=== PATIENT | female | born 1970 | race Caucasian/White ===

== ENCOUNTER 2018-11-05 20:36 | Observation (INO) ==
[2018-11-05 21:11] LABS: Basophils # 0.1 K/mm3 (0-0.2); Basophils % 0.5 % (0.1-2.0); Eosinophils # 0.2 K/mm3 (0.0-0.4); Eosinophils % 2.2 % (0.1-12.0); Hematocrit 38.3 % (37.0-47.0); Hemoglobin 13.7 g/dL (12.2-16.2); Lymphocytes % 49.5 % (10-50); Mean Corpuscular HGB Conc 35.8 g/dL (31.8-35.4); Mean Corpuscular Hemoglobin 32.1 pg (27.0-31.2); Mean Corpuscular Volume 89.8 fl (81-99); Mean Platelet Volume 7.5 fl (7.4-10.4); Monocytes # 0.5 K/mm3 (0.1-1.0); Monocytes % 4.9 % (1.7-9.3); Neutrophils # 4.3 K/mm3 (1.8-7.8); Platelet Count 176 K/mm3 (142-424); Red Blood Count 4.26 M/mm3 (4.20-5.40); Red Cell Distribution Width 12.4 % (11.5-17.5)
[2018-11-05 21:31] LABS: Blood Urea Nitrogen 13 mg/dL (7-18); Carbon Dioxide 26 mmol/L (21.0-32.0); Chloride 104 mmol/L (98-107); Glucose 109 mg/dL (74-106); Sodium 142 mmol/L (136-145)
--- NOTE | 2018-11-05 21:53 | Emergency Department Note ---
ED Disposition Clinical Impression: Obesity (BMI 30-39.9), Tobacco use, Hypokalemia, Acquired hypothyroidism Chest pain Qualifiers: Chest pain type: precordial pain Qualified Code(s): R07.2 - Precordial pain Hyperlipidemia Qualifiers: Hyperlipidemia type: unspecified Qualified Code(s): E78.5 - Hyperlipidemia, unspecified HTN (hypertension) Qualifiers: Hypertension type: essential hypertension Qualified Code(s): I10 - Essential (primary) hypertension Disposition: Admitted as Observation Condition on Discharge: Good Referrals: Zahira Chavez APRN [Primary Care Provider] - - Critical Care Critical Care Time: No Attestation: On 11/05/18, the high probability of a clinically significant, sudden or life threatening deterioration of the following system(s) required my full and direct attention, intervention and personal management. The time I documented below is in addition to time spent performing reported procedures but includes the following listed in this critical care notation. Medical Decision Making - Medical Records Medical records reviewed: Yes: I reviewed the patient's medical records. - Festus Inquiry Pt receiving controlled substance: No Vital Signs: 11/05/18 20:37 11/05/18 22:06 Temperature 98.8 F Temperature Source Oral Pulse Rate [Right] 73 65 Respiratory Rate 16 20 Blood Pressure [Right Arm] 144/90 H 141/80 H Blood Pressure Mean [Right Arm] 108 100 Blood Pressure Source [Right Arm] Automatic Cuff Blood Pressure Position [Right Arm] Supine 02 Sat by Pulse Oximetry 97 92 L Oxygen Delivery Method Room Air - Lab Data Lab results reviewed: Yes: I reviewed the patient's lab results. Lab Results 11/05/18 20:40: WBC 10.0, RBC 4.26, Hgb 13.7, Hct 38.3, MCV 89.8, MCH 32.1 H, MCHC 35.8 H, RDW 12.4, Plt Count 176, MPV 7.5, Neut % (Auto) 43.0, Lymph % (Auto) 49.5, [place] % (Auto) 4.9, Eos % (Auto) 2.2, Baso % (Auto) 0.5, Neut # (Auto) 4.3, Lymph # (Auto) 5.0 H, [place] # (Auto) 0.5, Eos # (Auto) 0.2, Baso # (Auto) 0.1 11/05/18 20:40: Sodium 142, Potassium 3.0 L, Chloride 104, Carbon Dioxide 26, Anion Gap 15.0, BUN 13, Creatinine 0.73, Estimated Creat Clear 148, Estimated GFR 85, Est GFR ( Amer) 103, Glucose 109 H, Calcium 9.0, Troponin I < 0.02 Result diagrams: 11/05/18 20:40 11/05/18 20:40 Orders (Tests/Meds): ED MEDICATIONS Generic Name Dose Route Start Last Admin Trade Name Freq PRN Reason Stop Dose Admin Sodium Chloride 1,000 mls @ 999 mls/hr 11/05/18 21:00 11/05/18 21:00 Sod Chlor 0.9% 1000ml Bag IV 11/05/18 22:00 999 mls/hr .Q1H1M TANYA Administration Discontinued Medications Generic Name Dose Route Start Last Admin Trade Name Freq PRN Reason Stop Dose Admin Aspirin 324 mg 11/05/18 20:58 11/05/18 20:59 Aspirin 81mg Chewable Tablet PO 11/05/18 20:59 324 mg ONCE ONE Administration Nitroglycerin 1 gm 11/05/18 20:58 11/05/18 21:00 Nitroglycerin 1 Inch Oint Udp TD 11/05/18 20:59 1 gm ONCE ONE Administration ORDERS Category Date Time Status Chest XR 2 view (NOT portable) [XR chest 2V] Stat Exams 11/05/18 20:57 Taken - Radiology Data #1 Image(s): Chest Image Reviewed: Yes I reviewed the patient's radiology image Preliminary Findings: Normal/NAD - ECG Data Tracing #1 Normal Sinus Rhythm: Yes Ischemic changes: non-specific ST-T wave changes - Physician Consults Physician Consulted: jeremy Reason -: Admission Chest Pain HPI - General Chief Complaint: Chest Pain Stated Complaint: Chest pain Time Seen by Provider: 11/05/18 20:50 Mode of Arrival: EMS Source of Information: Patient, EMS, Medical Record Limitations: No Limitations Description of Symptoms (Recalled from ER Triage Doc. by RN): Pt c/o of chest pain today, nitro given PRIMARY CLINICIAN by EMS without relief - History of Present Illness HPI narrative: this wf with ant chest pain with rad to neck - pain is new and no specific inc or dec factors - no prev card jose elias Otoole MD complaint: chest pain indicative of cardiac Onset (ago): day(s) Duration: intermittent Activity at onset: during rest Pain location: left chest Quality: aching Pain radiation: neck Risk Factors for CAD: Hypertension, Family Hx of CAD, Smoking Treatments prior to or on arrival for Cardiac Chest Pain: none - GAVIN Score for Non-Stemi Age of Patient: 40-49 years old Heart Rate: 70-89 bpm Systolic Blood Pressure: 140-159 mmHg Serum Creatinine: 0.40-0.79 mg/dl CHF [place] Class: I-No CHF Other Risk Factors: None Non-Stemi Risk Score: 62 - Related Data On Oral Contraceptives: No Home Medications Medication Instructions Recorded Confirmed Acyclovir [Acyclovir 800mg tab] 400 mg PO BID 11/05/18 11/05/18 Albuterol Sulfate [Albuterol 2.5 mg IH NEEDED PRN 11/05/18 11/05/18 0.083% 2.5mg/3mL neb] Atorvastatin Calcium [Lipitor 20mg 20 mg PO HS 11/05/18 11/05/18 Tablet] Fluoxetine HCl [Prozac] 20 mg PO DAILY 11/05/18 11/05/18 Gabapentin 600 mg PO QID 11/05/18 11/05/18 Levothyroxine Sodium [Synthroid 75 mcg PO DAILY 11/05/18 11/05/18 75mcg (0.075mg) tablet] Lisinopril [Lisinopril 30mg Tablet] 30 mg PO DAILY 11/05/18 11/05/18 Omeprazole [Omeprazole 20mg Tab] 20 mg PO DAILY 11/05/18 11/05/18 Ondansetron HCl [Ondansetron 4mg 4 mg PO Q6HP PRN 11/05/18 11/05/18 Tablet] clonazePAM [Klonopin 0.5mg tablet] 0.5 mg PO NEEDED PRN 11/05/18 11/05/18 Allergies Allergy/AdvReac Type Severity Reaction Status Date / Time INGREDIENT: NO KNOWN - NO Allergy Unknown Uncoded 06/25/17 14:52 KNOWN DRUG ALLERGY [facility] History - Hepatitis A Screen Drug use history?: No High risk sexual behaviors?: No History of sexually transmitted infection?: No Currently employed?: No Childcare worker?: No Do you have indoor plumbing?: Yes Do you have electricity?: Yes Attestation statement:: This patient has been screened for Hepatitis A risk factors. I have reviewed the patient's past medical history: Yes Medical History: Denies:: Diabetes Mellitus Type 1, Diabetes Mellitus Type 2 - Social History Smoking Status: Current every day smoker Tobacco Type: cigarettes, e-cigarettes # Packs/Day (cigarettes): 1 Alcohol Intake: never Occupational Status: disabled - Psychiatric History Expresses thoughts of harming self/others: None Suicide Plan Description: No Plan ROS Obtained: Yes All systems reviewed & no additional complaints - Constitutional Constitutional: Denies fever(s) - Eyes Eyes: Denies change in vision - ENT Ears, Nose, Mouth, and Throat: Denies sore throat - Cardiovascular Cardiovascular: Reports chest pain at rest, Reports dyspnea, Reports radiating jaw, neck or arm pain - Respiratory Respiratory: No cough - Gastrointestinal Gastrointestingal: Denies: abdominal pain, vomiting - Genitourinary Female Genitourinary: Denies hematuria - Musculoskeletal Musculoskeletal: Denies joint pain, Denies joint swelling - Integumentary/Breasts Skin/Breast: Denies rash - Neurologic Neurologic: Denies seizure-like activity Physical Exam - General General appearance: alert, obese - Head Head exam: normocephalic - Eye Eye exam: Present: PERRL, EOMI. Absent: scleral icterus - ENT ENT exam: Present: mucous membranes dry - Neck Neck exam: Present: trachea midline - Respiratory Respiratory exam: Present: normal lung sounds bilaterally. Absent: respiratory distress - Cardiovascular Cardiovascular exam: Present: regular rate, systolic murmur - Abdominal Exam Abdominal exam: Present: soft - Extremities Exam Extremities exam: Absent: calf tenderness - Neurological Exam Neurological exam: Present: alert, oriented X3, CN II-XII intact - Psychiatric Psychiatric exam: Present: normal affect - Skin Skin exam: Absent: rash
[2018-11-05 23:52] LABS: Thyroid Stimulating Hormone 2.19 uIU/ml (0.358-3.740)
[2018-11-06 06:43] LABS: Basophils # 0.1 K/mm3 (0-0.2); Basophils % 0.6 % (0.1-2.0); Eosinophils # 0.2 K/mm3 (0.0-0.4); Eosinophils % 2.4 % (0.1-12.0); Hematocrit 34.8 % (37.0-47.0); Lymphocytes # 5.1 K/mm3 (0.7-4.5); Lymphocytes % 54.5 % (10-50); Mean Corpuscular HGB Conc 35.1 g/dL (31.8-35.4); Mean Corpuscular Hemoglobin 31.9 pg (27.0-31.2); Mean Corpuscular Volume 90.8 fl (81-99); Mean Platelet Volume 7.7 fl (7.4-10.4); Monocytes # 0.5 K/mm3 (0.1-1.0); Monocytes % 5.6 % (1.7-9.3); Neutrophils # 3.4 K/mm3 (1.8-7.8); Neutrophils % 36.8 % (37.0-80.0); Platelet Count 168 K/mm3 (142-424); Red Blood Count 3.83 M/mm3 (4.20-5.40); Red Cell Distribution Width 12.3 % (11.5-17.5); White Blood Count 9.3 K/mm3 (4.8-10.8)
[2018-11-06 06:56] LABS: Hemoglobin 12.3 g/dL (12.2-16.2)
[2018-11-06 07:09] LABS: Anion Gap 11.4 mEq/L (5-15); Chol/HDL Ratio 5.5 (1-3.5); Potassium 3.4 mmoL/L (3.5-5.1)
--- NOTE | 2018-11-06 07:11 | Pharmacy Consult Notes ---
[facility] Pharmacy VTE Monitoring - Patient Demographics Admission date: 11/05/18 Report Date: 11/06/18 Time: 07:11 Allergies/Adverse Reactions: Patient Allergies INGREDIENT: NO KNOWN - NO KNOWN DRUG ALLERGY Allergy (Unknown, Uncoded 06/25/17 14:52) Height: 1.63 m Weight: 89.471 kg Patient Problems: Current Active Problems (Updated 11/05/18 @ 23:20 by Braydon Mendoza MD) Chest pain (Acute) Obesity (BMI 30-39.9) (Acute) Tobacco use (Acute) Hypokalemia (Acute) Acquired hypothyroidism (Acute) Hyperlipidemia (Acute) HTN (hypertension) (Acute) - VTE Risk Labs: VTE Related Lab Results Hgb 12.3 g/dL (12.2-16.2) D 11/06/18 05:31 Hct 34.8 % (37.0-47.0) L 11/06/18 05:31 Plt Count 168 K/mm3 (142-424) 11/06/18 05:31 BUN 11 mg/dL (7-18) 11/06/18 05:31 Creatinine 0.62 mg/dL (0.55-1.02) 11/06/18 05:31 Estimated Creat Clear 157 mL/min (50-200) 11/06/18 05:31 Was VTE Risk Assessment Performed: Yes VTE Score: 2 VTE Risk Level: Very Low Risk Clinical Trial Participant: No - Prophylaxis Types of VTE Prophylaxis: TEDS Knee High
--- NOTE | 2018-11-06 07:53 | Consult Report ---
History of Present Illness Consult date: 11/06/18 Requesting physician: Naresh Morales Consult reason: chest pain Chief complaint: chest pain Additional Medical History:: 1. Hypertension 2. Hyperlipidemia 3. Tobacco use, started 3 years ago 4. Disability due to arthritis, fibromyalgia 5. Obesity 6. Hypothyroidism 7. GERD History of present illness: 47-year-old white female relates onset of gas type chest sensation starting on 11/01/2018 and intermittently worse since then but not associated with activity. Patient denies any fever, nausea or vomiting. Questionable chills noted. Yesterday about 20 minutes after eating patient developed sudden severe chest tightness with reported pallor and diaphoresis. Patient was transported to the emergency department for further evaluation. She was admitted for observation. Cardiac troponins overnight have been normal. Patient's EKG is sinus and unremarkable. Preliminary echocardiogram this morning shows normal left ventricular size and function with no significant valvular heart disease. Patient does relate some upper abdominal discomfort with palpation and some chest discomfort with palpation. Chest x-ray is unremarkable. Cardiology consulted for evaluation and recommendations. [facility] History Medical History: Reports:: Hyperlipidemia, Hypertension Denies:: Diabetes Mellitus Type 1, Diabetes Mellitus Type 2 *Have you ever received a pneumonia vaccine?: No *Have you received a flu vaccine this season?: No Other Surgeries: Yes: Appendectomy, , Tubal Ligation - *Social History Educational Level: Attended High School Smoking Status: Current every day smoker Tobacco Type: cigarettes # Packs/Day (cigarettes): 1 Alcohol Intake: never *Occupational Status:: disabled Housing: apartment *Travel in the last 8 weeks: None - Psychiatric History Expresses thoughts of harming self/others: None Suicide Plan Description: No Plan Family Hx:: Diabetes, Heart Attack, Hyperlipidemia, Hypertension, Stroke Meds Home Medications Medication Instructions Recorded Confirmed Type Acyclovir [Acyclovir 800mg tab] 400 mg PO BID 11/05/18 11/06/18 History Albuterol Sulfate [Albuterol 2.5 mg IH NEEDED PRN 11/05/18 11/06/18 History 0.083% 2.5mg/3mL neb] Fluoxetine HCl [Prozac] 20 mg PO DAILY 11/05/18 11/06/18 History Gabapentin 600 mg PO QID 11/05/18 11/06/18 History Levothyroxine Sodium [Synthroid 37.5 mcg PO DAILY 11/05/18 11/06/18 History 75mcg (0.075mg) tablet] Omeprazole [Omeprazole 20mg Tab] 20 mg PO DAILY 11/05/18 11/06/18 History Ondansetron HCl [Ondansetron 4mg 4 mg PO Q6HP PRN 11/05/18 11/06/18 History Tablet] clonazePAM [Klonopin 0.5mg tablet] 0.5 mg PO TID PRN 11/05/18 11/06/18 History Albuterol Sulfate [Proair Hfa 1 - 2 puffs INHALATION Q6HP PRN 11/06/18 11/06/18 History 90mcg/puff Inh] Lisinopril [Lisinopril 40mg Tablet] 40 mg PO DAILY 11/06/18 11/06/18 History Metoprolol Succinate [Toprol XL 50 mg PO DAILY 11/06/18 11/06/18 History 50mg Tablet] Naproxen [Naproxen 500mg tab] 500 mg PO BID 11/06/18 11/06/18 History Pravastatin Sodium [Pravachol 40mg 40 mg PO HS 11/06/18 11/06/18 History Tablet] Allergies Allergy/AdvReac Type Severity Reaction Status Date / Time No Known Allergies Allergy Unverified 11/06/18 07:25 Review of Systems - *Cardiovascular Reports chest pain, Reports shortness of breath with activity, Denies lightheadedness - *Respiratory Reports shortness of breath with activity, Denies cough - *Gastrointestinal Reports abdominal pain, Denies nausea, Denies vomiting - *Genitourinary Denies blood in urine - *Musculoskeletal Reports joint pain, Reports back pain, Reports limited joint movement, Reports body aches Comments: Left ankle pain due to sprain - *Neurologic Denies seizure-like activity Exam Vital signs and Labs for Last 24 Hours: Temp Pulse Resp BP Pulse Ox 97.9 F 65 16 113/68 96 11/06/18 04:00 11/06/18 04:00 11/06/18 04:00 11/06/18 04:00 11/06/18 04:00 Laboratory Results - last 24 hr 11/05/18 20:40: WBC 10.0, RBC 4.26, Hgb 13.7, Hct 38.3, MCV 89.8, MCH 32.1 H, MCHC 35.8 H, RDW 12.4, Plt Count 176, MPV 7.5, Neut % (Auto) 43.0, Lymph % (Auto) 49.5, [place] % (Auto) 4.9, Eos % (Auto) 2.2, Baso % (Auto) 0.5, Neut # (Auto) 4.3, Lymph # (Auto) 5.0 H, [place] # (Auto) 0.5, Eos # (Auto) 0.2, Baso # (Auto) 0.1 11/05/18 20:40: Sodium 142, Potassium 3.0 L, Chloride 104, Carbon Dioxide 26, Anion Gap 15.0, BUN 13, Creatinine 0.73, Estimated Creat Clear 148, Estimated GFR 85, Est GFR ( Amer) 103, Glucose 109 H, Calcium 9.0, Troponin I < 0.02 11/05/18 20:40: TSH 2.19, Thyroxine (T4) 6.9 11/06/18 02:05: Troponin I < 0.02 11/06/18 05:31: Troponin I < 0.02 11/06/18 05:31: WBC 9.3, RBC 3.83 L, Hgb 12.3 D, Hct 34.8 L, MCV 90.8, MCH 31.9 H, MCHC 35.1, RDW 12.3, Plt Count 168, MPV 7.7, Neut % (Auto) 36.8 L, Lymph % (Auto) 54.5 H, [place] % (Auto) 5.6, Eos % (Auto) 2.4, Baso % (Auto) 0.6, Neut # (Auto) 3.4, Lymph # (Auto) 5.1 H, [place] # (Auto) 0.5, Eos # (Auto) 0.2, Baso # (Auto) 0.1 11/06/18 05:31: Sodium 143, Potassium 3.4 L, Chloride 107, Carbon Dioxide 28, Anion Gap 11.4, BUN 11, Creatinine 0.62, Estimated Creat Clear 157, Estimated GFR 103, Est GFR ( Amer) 124 D, Glucose 103, Calcium 9.0, Magnesium 1.9, Triglycerides 175, Cholesterol 144, LDL Cholesterol 83, VLDL Cholesterol 35, HDL Cholesterol 26 L, Cholesterol/HDL Ratio 5.5 H I & O for Last 24 hours: Intake & Output 11/03/18 11/04/18 11/05/18 11/06/18 11:59 11:59 11:59 11:59 Intake Total 467 / 467 Output Total 500 / 500 Balance -33 / -33 Weight 197 lb 4 oz - *Routine HEENT Exam Head: Present: normocephalic Eye: Present: EOMI, PERRL ENT: Present: mucous membranes moist Comments: Poor dentition - *Routine Respiratory Exam Present: CTA bilaterally. Absent: accessory muscle use, rales, rhonchi, wheezes - *Routine Cardiovascular Exam Present: RRR. Absent: murmur, gallop, rubs - *Routine Abdominal Exam Present: soft. Absent: tenderness, distended, guarding - *Routine Extremities Exam Absent: edema, calf tenderness - *Routine Neurological Exam Present: alert, oriented X3, moving all extremities Assessment and Plan (1) Chest pain Current visit: Yes Status: Acute Qualifiers: Chest pain type: precordial pain Qualified Code(s): R07.2 - Precordial pain Category: Medical Code(s): R07.9 - Chest pain, unspecified (2) Abdominal pain Current visit: Yes Status: Acute Category: Medical Code(s): R10.9 - Unspecified abdominal pain (3) HTN (hypertension) Current visit: Yes Status: Acute Qualifiers: Hypertension type: essential hypertension Qualified Code(s): I10 - Essential (primary) hypertension Category: Medical Code(s): I10 - Essential (primary) hypertension (4) Hyperlipidemia Current visit: Yes Status: Acute Qualifiers: Hyperlipidemia type: unspecified Qualified Code(s): E78.5 - Hyperlipidemia, unspecified Category: Medical Code(s): E78.5 - Hyperlipidemia, unspecified (5) Obesity (BMI 30-39.9) Current visit: Yes Status: Acute Category: Medical Code(s): E66.9 - Obesity, unspecified (6) Tobacco use Current visit: Yes Status: Acute Category: Medical Code(s): Z72.0 - Tobacco use - Assessment and plan all Dx Assessment and Plan for all problems:: 1. Preliminary echo shows normal LVEF. 2. Troponins normal overnight. 3. With recurrent chest pain, cardiac risk factors and normal LVEF, will recommend lexiscan myoview today. Further recommendations to follow.
[2018-11-06 09:35] LABS: Eosinophils % 2 % (0-3); Lymphocytes % 64 % (10-50); Monocytes % 3 % (2-9); Neutrophils % 30 % (42-76); Total Cells Counted 100
[2018-11-06 09:36] LABS: RBC Morphology Normal
--- NOTE | 2018-11-06 10:54 | Progress Note ---
Internal Medicine - PN: Subj *Date: 11/06/18 *Time: 10:51 Interval history: Ms. Eli was admitted through the emergency room last night with chest pain. She has had chest pain off and on for the past several days. It was nonexertional when it started last night. She has a family history of heart disease. She has hypertension and hyperlipidemia. She is a smoker. She has been seen by cardiology already. She completed a Cardiolite stress test this morning. The results are pending area she is in no acute distress right now but does admit to some substernal chest pain. Exam Vital signs and Labs for Last 24 Hours: Temp Pulse Resp BP Pulse Ox 98.0 F 65 19 156/93 H 97 11/06/18 08:00 11/06/18 08:00 11/06/18 08:00 11/06/18 08:00 11/06/18 08:00 Laboratory Results - last 24 hr 11/05/18 20:40: WBC 10.0, RBC 4.26, Hgb 13.7, Hct 38.3, MCV 89.8, MCH 32.1 H, MCHC 35.8 H, RDW 12.4, Plt Count 176, MPV 7.5, Neut % (Auto) 43.0, Lymph % (Auto) 49.5, [place] % (Auto) 4.9, Eos % (Auto) 2.2, Baso % (Auto) 0.5, Neut # (Auto) 4.3, Lymph # (Auto) 5.0 H, [place] # (Auto) 0.5, Eos # (Auto) 0.2, Baso # (Auto) 0.1 11/05/18 20:40: Sodium 142, Potassium 3.0 L, Chloride 104, Carbon Dioxide 26, Anion Gap 15.0, BUN 13, Creatinine 0.73, Estimated Creat Clear 148, Estimated GFR 85, Est GFR ( Amer) 103, Glucose 109 H, Calcium 9.0, Troponin I < 0.02 11/05/18 20:40: TSH 2.19, Thyroxine (T4) 6.9 11/06/18 02:05: Troponin I < 0.02 11/06/18 05:31: Troponin I < 0.02 11/06/18 05:31: WBC 9.3, RBC 3.83 L, Hgb 12.3 D, Hct 34.8 L, MCV 90.8, MCH 31.9 H, MCHC 35.1, RDW 12.3, Plt Count 168, MPV 7.7, Neut % (Auto) 36.8 L, Lymph % (Auto) 54.5 H, [place] % (Auto) 5.6, Eos % (Auto) 2.4, Baso % (Auto) 0.6, Neut # (Auto) 3.4, Lymph # (Auto) 5.1 H, [place] # (Auto) 0.5, Eos # (Auto) 0.2, Baso # (Auto) 0.1, Total Counted 100, Neutrophils % (Manual) 30 L, Band Neutrophils % 1.0, Lymphocytes % (Manual) 64 H, Monocytes % (Manual) 3, Eosinophils % (Manual) 2, Platelet Estimate Normal, RBC Morphology Normal 11/06/18 05:31: Sodium 143, Potassium 3.4 L, Chloride 107, Carbon Dioxide 28, Anion Gap 11.4, BUN 11, Creatinine 0.62, Estimated Creat Clear 157, Estimated GFR 103, Est GFR ( Amer) 124 D, Glucose 103, Calcium 9.0, Magnesium 1.9, Triglycerides 175, Cholesterol 144, LDL Cholesterol 83, VLDL Cholesterol 35, HDL Cholesterol 26 L, Cholesterol/HDL Ratio 5.5 H I & O for Last 24 hours: Intake & Output 11/03/18 11/04/18 11/05/18 11/06/18 11:59 11:59 11:59 11:59 Intake Total 467 / 467 Output Total 500 / 500 Balance -33 / -33 Weight 197 lb 4 oz - Constitutional no acute distress - *Routine HEENT Exam Head: Present: normocephalic Eye: Present: PERRL ENT: Present: mucous membranes moist - *Routine Respiratory Exam Present: CTA bilaterally - *Routine Cardiovascular Exam Present: RRR. Absent: murmur - *Routine Abdominal Exam Present: soft (Obese). Absent: tenderness - *Routine Extremities Exam Absent: edema - *Routine Neurological Exam Present: alert, oriented X3 Assessment and Plan (1) Chest pain Current visit: Yes Status: Acute Qualifiers: Chest pain type: precordial pain Qualified Code(s): R07.2 - Precordial pain Category: Medical Code(s): R07.9 - Chest pain, unspecified (2) Abdominal pain Current visit: Yes Status: Acute Category: Medical Code(s): R10.9 - Unspecified abdominal pain (3) HTN (hypertension) Current visit: Yes Status: Acute Qualifiers: Hypertension type: essential hypertension Qualified Code(s): I10 - Essenti al (primary) hypertension Category: Medical Code(s): I10 - Essential (primary) hypertension (4) Hyperlipidemia Current visit: Yes Status: Acute Qualifiers: Hyperlipidemia type: unspecified Qualified Code(s): E78.5 - Hyperlipidemia, unspecified Category: Medical Code(s): E78.5 - Hyperlipidemia, unspecified (5) Obesity (BMI 30-39.9) Current visit: Yes Status: Acute Category: Medical Code(s): E66.9 - Obesity, unspecified (6) Tobacco use Current visit: Yes Status: Acute Category: Medical Code(s): Z72.0 - Tobacco use - Assessment and plan all Dx Assessment and Plan for all problems:: Awaiting Cardiolite results.
--- NOTE | 2018-11-06 12:25 | History & Physical Report ---
*Admission Date: 11/05/18 *Chief complaint: chest pain *History of present illness: Ms. Eli is a 47yo female patient of Zahira Chavez who was admitted through the emergency room last night with chest pain. She has had chest pain off and on for the past several days. It was nonexertional when it started last night. She thought it was just reflux as she had some pain in the epigastric area as well, but when it did not resolve, she came to the ER. She has a family history of heart disease. She has hypertension and hyperlipidemia. She is a smoker. She has been seen by cardiology already. She completed a Cardiolite stress test this morning. The results are pending and she is in no acute distress right now but does admit to some substernal chest pain and epigastric pain. [facility] History I have reviewed the patient's past medical history: Yes Medical History: Reports:: Chronic Obstructive Pulmonary Disease (COPD), Hyperlipidemia, Hypertension Denies:: Diabetes Mellitus Type 1, Diabetes Mellitus Type 2 *Have you ever received a pneumonia vaccine?: No *Have you received a flu vaccine this season?: No Other Medical History: Reports: Arthritis, Hypothyroidism, Other (Fibromyalgia, Genital Warts) Other Surgeries: Yes: Appendectomy, , Tubal Ligation - *Social History Educational Level: Attended High School Smoking Status: Current every day smoker Tobacco Type: cigarettes # Packs/Day (cigarettes): 1 Alcohol Intake: never *Occupational Status:: disabled Housing: apartment *Travel in the last 8 weeks: None - Psychiatric History Expresses thoughts of harming self/others: None Suicide Plan Description: No Plan Family Hx:: Diabetes, Heart Attack, Hyperlipidemia, Hypertension, Stroke Review of Systems - Constitutional Reports weakness, Denies fever(s) - Eyes Denies blurry vision, Denies double vision - ENT Reports sore throat, Denies nasal congestion - *Cardiovascular Reports chest pain, Reports shortness of breath, Reports rapid, pounding, or irregular heartbeat - *Respiratory Reports cough, Reports shortness of breath - *Gastrointestinal Reports abdominal pain (epigastric and RUQ), Reports loose stools, Reports nausea, Denies vomiting - *Genitourinary Denies difficulty urinating, Denies painful urination - *Musculoskeletal Reports joint pain, Reports muscle cramps - *Neurologic Reports headache(s), Denies seizure-like activity, Denies dizziness, Denies weakness Meds Home Medications Medication Instructions Recorded Confirmed Type Acyclovir [Acyclovir 800mg tab] 400 mg PO BID 11/05/18 11/06/18 History Albuterol Sulfate [Albuterol 2.5 mg IH NEEDED PRN 11/05/18 11/06/18 History 0.083% 2.5mg/3mL neb] Fluoxetine HCl [Prozac] 20 mg PO DAILY 11/05/18 11/06/18 History Gabapentin 600 mg PO QID 11/05/18 11/06/18 History Levothyroxine Sodium [Synthroid 37.5 mcg PO DAILY 11/05/18 11/06/18 History 75mcg (0.075mg) tablet] Omeprazole [Omeprazole 20mg Tab] 20 mg PO DAILY 11/05/18 11/06/18 History Ondansetron HCl [Ondansetron 4mg 4 mg PO Q6HP PRN 11/05/18 11/06/18 History Tablet] clonazePAM [Klonopin 0.5mg tablet] 0.5 mg PO TID PRN 11/05/18 11/06/18 History Albuterol Sulfate [Proair Hfa 1 - 2 puffs INHALATION Q6HP PRN 11/06/18 11/06/18 History 90mcg/puff Inh] Lisinopril [Lisinopril 40mg Tablet] 40 mg PO DAILY 11/06/18 11/06/18 History Metoprolol Succinate [Toprol XL 50 mg PO DAILY 11/06/18 11/06/18 History 50mg Tablet] Naproxen [Naproxen 500mg tab] 500 mg PO BID 11/06/18 11/06/18 History Pravastatin Sodium [Pravachol 40mg 40 mg PO HS 11/06/18 11/06/18 History Tablet] Allergies Allergy/AdvReac Type Severity Reaction Status Date / Time No Known Allergies Allergy Unverified 11/06/18 07:25 Exam Vital signs and Labs for Last 24 Hours: Temp Pulse Resp BP Pulse Ox 98.0 F 65 19 156/93 H 97 11/06/18 08:00 11/06/18 08:00 11/06/18 08:00 11/06/18 08:00 11/06/18 08:00 Laboratory Results - last 24 hr 11/05/18 20:40: WBC 10.0, RBC 4.26, Hgb 13.7, Hct 38.3, MCV 89.8, MCH 32.1 H, MCHC 35.8 H, RDW 12.4, Plt Count 176, MPV 7.5, Neut % (Auto) 43.0, Lymph % (Auto) 49.5, [place] % (Auto) 4.9, Eos % (Auto) 2.2, Baso % (Auto) 0.5, Neut # (Auto) 4.3, Lymph # (Auto) 5.0 H, [place] # (Auto) 0.5, Eos # (Auto) 0.2, Baso # (Auto) 0.1 11/05/18 20:40: Sodium 142, Potassium 3.0 L, Chloride 104, Carbon Dioxide 26, Anion Gap 15.0, BUN 13, Creatinine 0.73, Estimated Creat Clear 148, Estimated GFR 85, Est GFR ( Amer) 103, Glucose 109 H, Calcium 9.0, Troponin I < 0.02 11/05/18 20:40: TSH 2.19, Thyroxine (T4) 6.9 11/06/18 02:05: Troponin I < 0.02 11/06/18 05:31: Troponin I < 0.02 11/06/18 05:31: WBC 9.3, RBC 3.83 L, Hgb 12.3 D, Hct 34.8 L, MCV 90.8, MCH 31.9 H, MCHC 35.1, RDW 12.3, Plt Count 168, MPV 7.7, Neut % (Auto) 36.8 L, Lymph % (Auto) 54.5 H, [place] % (Auto) 5.6, Eos % (Auto) 2.4, Baso % (Auto) 0.6, Neut # (Auto) 3.4, Lymph # (Auto) 5.1 H, [place] # (Auto) 0.5, Eos # (Auto) 0.2, Baso # (Auto) 0.1, Total Counted 100, Neutrophils % (Manual) 30 L, Band Neutrophils % 1.0, Lymphocytes % (Manual) 64 H, Monocytes % (Manual) 3, Eosinophils % (Manual) 2, Platelet Estimate Normal, RBC Morphology Normal 11/06/18 05:31: Sodium 143, Potassium 3.4 L, Chloride 107, Carbon Dioxide 28, Anion Gap 11.4, BUN 11, Creatinine 0.62, Estimated Creat Clear 157, Estimated GF R 103, Est GFR ( Amer) 124 D, Glucose 103, Calcium 9.0, Magnesium 1.9, Triglycerides 175, Cholesterol 144, LDL Cholesterol 83, VLDL Cholesterol 35, HDL Cholesterol 26 L, Cholesterol/HDL Ratio 5.5 H 11/06/18 05:31: Amylase 21 L I & O for Last 24 hours: Intake & Output 11/04/18 11/05/18 11/06/18 11/07/18 11:59 11:59 11:59 11:59 Intake Total 467 / 467 Output Total 500 / 500 Balance -33 / -33 Weight 197 lb 4 oz - Constitutional no acute distress - *Routine HEENT Exam Head: Present: normocephalic Eye: Present: EOMI, PERRL ENT: Present: mucous membranes dry - *Routine Neck Exam Present: supple. Absent: lymphadenopathy - *Routine Respiratory Exam Present: CTA bilaterally - *Routine Cardiovascular Exam Present: RRR - *Routine Abdominal Exam Present: soft, normoactive bowel sounds, tenderness (epigastric and RUQ) - *Routine Extremities Exam Absent: cyanosis, clubbing, edema - *Routine Skin Exam Present: warm. Absent: rash - *Routine Neurological Exam Present: alert, oriented X3 H&P: Result - Impressions CXR - Borderline cardiomegaly otherwise Assessment and Plan (1) Chest pain Current visit: Yes Status: Acute Qualifiers: Chest pain type: precordial pain Qualified Code(s): R07.2 - Precordial pain Category: Medical Code(s): R07.9 - Chest pain, unspecified (2) Abdominal pain Current visit: Yes Status: Acute Category: Medical Code(s): R10.9 - Unspecified abdominal pain (3) HTN (hypertension) Current visit: Yes Status: Acute Qualifiers: Hypertension type: essential hypertension Qualified Code(s): I10 - Essential (primary) hypertension Category: Medical Code(s): I10 - Essential (primary) hypertension (4) Hyperlipidemia Current visit: Yes Status: Acute Qualifiers: Hyperlipidemia type: unspecified Qualified Code(s): E78.5 - Hyperlipidemia, unspecified Category: Medical Code(s): E78.5 - Hyperlipidemia, unspecified (5) Obesity (BMI 30-39.9) Current visit: Yes Status: Acute Category: Medical Code(s): E66.9 - Obesity, unspecified (6) Tobacco use Current visit: Yes Status: Acute Category: Medical Code(s): Z72.0 - Tobacco use - Assessment and plan all Dx Assessment and Plan for all problems:: Still awaiting stress test and GB U/S results.
[2018-11-06 15:55] LABS: Albumin Level 3.7 gm/dL (3.4-5.0); Bilirubin,Direct 0.1 mg/dL (0.0-0.2); Bilirubin,Indirect 0.3 mg/dL (0.0-0.9); Bilirubin,Total 0.4 mg/dL (0.2-1.0)
--- NOTE | 2018-11-06 17:52 | Consult Report ---
*Admission Date: 11/05/18 *Chief complaint: chest and abdominal pain *History of present illness: This is a 47yo female seen in consultation from Dr. Morales for evaluation of chest/abdominal pain, nausea, and cholelithiasis. She describes pain in the mid abdomen (worse in the epigastric region). Some nausea over the last "day or so". Symptoms are "maybe worse with eating". She describes "mostly burning and some numbness" that radiates throughout her chest and "up to the neck". No fevers. No jaundice. No hematemesis. She does complain of having "reflux quite a bit". Please see HPI from admission H&P forwarded below: *Admission Date: 11/05/18 *Chief complaint: chest pain *History of present illness: Ms. Eli is a 47yo female patient of Zahira Chavez who was admitted through the emergency room last night with chest pain. She has had chest pain off and on for the past several days. It was nonexertional when it started last night. She thought it was just reflux as she had some pain in the epigastric area as well, but when it did not resolve, she came to the ER. She has a family history of heart disease. She has hypertension and hyperlipidemia. She is a smoker. She has been seen by cardiology already. She completed a Cardiolite stress test this morning. The results are pending and she is in no acute distress right now but does admit to some substernal chest pain and epigastric pain. Review of Systems - Constitutional Denies chills - Eyes Denies change in vision - ENT Denies change in voice - *Cardiovascular Reports chest pain - *Gastrointestinal Reports abdominal pain, Reports nausea - *Neurologic Reports headache(s), Denies seizure-like activity, Denies dizziness, Denies weakness - Hematologic/Lymphatic Denies easy bleeding [facility] History Medical History: Reports:: Chronic Obstructive Pulmonary Disease (COPD), Hyperlipidemia, Hypertension Denies:: Diabetes Mellitus Type 1, Diabetes Mellitus Type 2 *Have you ever received a pneumonia vaccine?: No *Have you received a flu vaccine this season?: No Other Medical History: Reports: Arthritis, Hypothyroidism, Other (Fibromyalgia, Genital Warts) Other Surgeries: Yes: Appendectomy, , Tubal Ligation - *Social History Educational Level: Attended High School Smoking Status: Current every day smoker Tobacco Type: cigarettes # Packs/Day (cigarettes): 1 Alcohol Intake: never *Occupational Status:: disabled Housing: apartment *Travel in the last 8 weeks: None - Psychiatric History Expresses thoughts of harming self/others: None Suicide Plan Description: No Plan Family Hx:: Diabetes, Heart Attack, Hyperlipidemia, Hypertension, Stroke Meds Home Medications Medication Instructions Recorded Confirmed Type Acyclovir [Acyclovir 800mg tab] 400 mg PO BID 11/05/18 11/06/18 History Albuterol Sulfate [Albuterol 2.5 mg IH NEEDED PRN 11/05/18 11/06/18 History 0.083% 2.5mg/3mL neb] Fluoxetine HCl [Prozac] 20 mg PO DAILY 11/05/18 11/06/18 History Gabapentin 600 mg PO QID 11/05/18 11/06/18 History Levothyroxine Sodium [Synthroid 37.5 mcg PO DAILY 11/05/18 11/06/18 History 75mcg (0.075mg) tablet] Omeprazole [Omeprazole 20mg Tab] 20 mg PO DAILY 11/05/18 11/06/18 History Ondansetron HCl [Ondansetron 4mg 4 mg PO Q6HP PRN 11/05/18 11/06/18 History Tablet] clonazePAM [Klonopin 0.5mg tablet] 0.5 mg PO TID PRN 11/05/18 11/06/18 History Albuterol Sulfate [Proair Hfa 1 - 2 puffs INHALATION Q6HP PRN 11/06/18 11/06/18 History 90mcg/puff Inh] Lisinopril [Lisinopril 40mg Tablet] 40 mg PO DAILY 11/06/18 11/06/18 History Metoprolol Succinate [Toprol XL 50 mg PO DAILY 11/06/18 11/06/18 History 50mg Tablet] Naproxen [Naproxen 500mg tab] 500 mg PO BID 11/06/18 11/06/18 History Pravastatin Sodium [Pravachol 40mg 40 mg PO HS 11/06/18 11/06/18 History Tablet] Allergies Allergy/AdvReac Type Severity Reaction Status Date / Time No Known Allergies Allergy Unverified 11/06/18 07:25 Exam Vital signs and Labs for Last 24 Hours: Temp Pulse Resp BP Pulse Ox 98.0 F 62 19 156/93 H 97 11/06/18 08:00 11/06/18 16:00 11/06/18 08:00 11/06/18 08:00 11/06/18 08:00 Laboratory Results - last 24 hr 11/05/18 20:40: WBC 10.0, RBC 4.26, Hgb 13.7, Hct 38.3, MCV 89.8, MCH 32.1 H, MCHC 35.8 H, RDW 12.4, Plt Count 176, MPV 7.5, Neut % (Auto) 43.0, Lymph % (Auto) 49.5, [place] % (Auto) 4.9, Eos % (Auto) 2.2, Baso % (Auto) 0.5, Neut # (Auto) 4.3, Lymph # (Auto) 5.0 H, [place] # (Auto) 0.5, Eos # (Auto) 0.2, Baso # (Auto) 0.1 11/05/18 20:40: Sodium 142, Potassium 3.0 L, Chloride 104, Carbon Dioxide 26, Anion Gap 15.0, BUN 13, Creatinine 0.73, Estimated Creat Clear 148, Estimated GFR 85, Est GFR ( Amer) 103, Glucose 109 H, Calcium 9.0, Troponin I < 0.02 11/05/18 20:40: TSH 2.19, Thyroxine (T4) 6.9 11/06/18 02:05: Troponin I < 0.02 11/06/18 05:31: Troponin I < 0.02 11/06/18 05:31: WBC 9.3, RBC 3.83 L, Hgb 12.3 D, Hct 34.8 L, MCV 90.8, MCH 31.9 H, MCHC 35.1, RDW 12.3, Plt Count 168, MPV 7.7, Neut % (Auto) 36.8 L, Lymph % (Auto) 54.5 H, [place] % (Auto) 5.6, Eos % (Auto) 2.4, Baso % (Auto) 0.6, Neut # (Auto) 3.4, Lymph # (Auto) 5.1 H, [place] # (Auto) 0.5, Eos # (Auto) 0.2, Baso # (Auto) 0.1, Total Counted 100, Neutrophils % (Manual) 30 L, Band Neutrophils % 1.0, Lymphocytes % (Manual) 64 H, Monocytes % (Manual) 3, Eosinophils % (Manual) 2, Platelet Estimate Normal, RBC Morphology Normal 11/06/18 05:31: Sodium 143, Potassium 3.4 L, Chloride 107, Carbon Dioxide 28, Anion Gap 11.4, BUN 11, Creatinine 0.62, Estimated Creat Clear 157, Estimated GFR 103, Est GFR ( Amer) 124 D, Glucose 103, Calcium 9.0, Magnesium 1.9, Triglycerides 175, Cholesterol 144, LDL Cholesterol 83, VLDL Cholesterol 35, HDL Cholesterol 26 L, Cholesterol/HDL Ratio 5.5 H 11/06/18 05:31: Amylase 21 L 11/06/18 05:31: Lipase 67 L 11/06/18 05:31: Total Bilirubin 0.4, Direct Bilirubin 0.1, Indirect Bilirubin 0.3, AST 16, ALT 40, Alkaline Phosphatase 73, Total Protein 7.0, Albumin 3.7 I & O for Last 24 hours: Intake & Output 11/04/18 11/05/18 11/06/18 11/07/18 11:59 11:59 11:59 11:59 Intake Total 467 / 467 Output Total 500 / 500 Balance -33 / -33 Weight 197 lb 4 oz Radiology Reports for the Last 24 Hours: Date of Service: 11/06/18 Procedure(s): US gallbladder PANCREAS: Unremarkable. No obvious mass or abnormal fluid collection. No ductal dilatation LIVER: No focal liver lesions demonstrated. Homogeneous echogenicity. No intrahepatic biliary ductal dilatation evident RIGHT KIDNEY: Unremarkable. Normal size and echogenicity. No hydronephrosis GALLBLADDER: Multiple gallstones are present. No gallbladder wall thickening, pericholecystic fluid, or biliary dilatation is evident IMPRESSION: Cholelithiasis Date of Service: 11/06/18 Procedure(s): NM zen perf SPECT rest & str CARDIOLITE SPECT MYOCARDIAL PERFUSION [place], REST AND STRESS: Cardiac stress and resting SPECT images: Cardiac stress and resting SPECT images were obtained using technetium 99 Myoview 29.5 mCi stress and 8.5 mCi at rest. Gated SPECT further analysis of segmental wall motion and calculation of the ejection fraction also done. Cardiac stress and resting SPECT images show mild defect in the anterior wall with normal contractility in the gated SPECT is likely secondary to soft tissue attenuation, no reversible ischemia seen. Computer Derived ejection fraction is 64% with no regional wall motion abnormality, right ventricle is normal size and contractility. Conclusion: 1. The EKG portion of the exercise Myoview is nondiagnostic. Patient has adequate exercise capacity achieved 7mets of workload on treadmill, the blood pressure response to exercise was adequate, there was no exercise-induced chest discomfort. 2. No scintigraphic evidence of reversible ischemia seen at this level of exercise, computer derived ejection fraction is 44% with no regional wall motion abnormality, right ventricle is normal size and contractility. - Constitutional no acute distress - *Routine Respiratory Exam Absent: respiratory distress - *Routine Cardiovascular Exam Present: RRR - *Routine Abdominal Exam Present: soft, tenderness. Absent: distended Comments: mild to moderate global TTP (worse in epigatric region) Results - Labs 11/06/18 05:31 11/06/18 05:31 Laboratory Results - last 24 hr 11/05/18 20:40: WBC 10.0, RBC 4.26, Hgb 13.7, Hct 38.3, MCV 89.8, MCH 32.1 H, MCHC 35.8 H, RDW 12.4, Plt Count 176, MPV 7.5, Neut % (Auto) 43.0, Lymph % (Auto) 49.5, [place] % (Auto) 4.9, Eos % (Auto) 2.2, Baso % (Auto) 0.5, Neut # (Auto) 4.3, Lymph # (Auto) 5.0 H, [place] # (Auto) 0.5, Eos # (Auto) 0.2, Baso # (Auto) 0.1 11/05/18 20:40: Sodium 142, Potassium 3.0 L, Chloride 104, Carbon Dioxide 26, Anion Gap 15.0, BUN 13, Creatinine 0.73, Estimated Creat Clear 148, Estimated GFR 85, Est GFR ( Amer) 103, Glucose 109 H, Calcium 9.0, Troponin I < 0.02 11/05/18 20:40: TSH 2.19, Thyroxine (T4) 6.9 11/06/18 02:05: Troponin I < 0.02 11/06/18 05:31: Troponin I < 0.02 11/06/18 05:31: WBC 9.3, RBC 3.83 L, Hgb 12.3 D, Hct 34.8 L, MCV 90.8, MCH 31.9 H, MCHC 35.1, RDW 12.3, Plt Count 168, MPV 7.7, Neut % (Auto) 36.8 L, Lymph % (Auto) 54.5 H, [place] % (Auto) 5.6, Eos % (Auto) 2.4, Baso % (Auto) 0.6, Neut # (Auto) 3.4, Lymph # (Auto) 5.1 H, [place] # (Auto) 0.5, Eos # (Auto) 0.2, Baso # (Auto) 0.1, Total Counted 100, Neutrophils % (Manual) 30 L, Band Neutrophils % 1.0, Lymphocytes % (Manual) 64 H, Monocytes % (Manual) 3, Eosinophils % (Manual) 2, Platelet Estimate Normal, RBC Morphology Normal 11/06/18 05:31: Sodium 143, Potassium 3.4 L, Chloride 107, Carbon Dioxide 28, Anion Gap 11.4, BUN 11, Creatinine 0.62, Estimated Creat Clear 157, Estimated GFR 103, Est GFR ( Amer) 124 D, Glucose 103, Calcium 9.0, Magnesium 1.9, Triglycerides 175, Cholesterol 144, LDL Cholesterol 83, VLDL Cholesterol 35, HDL Cholesterol 26 L, Cholesterol/HDL Ratio 5.5 H 11/06/18 05:31: Amylase 21 L 11/06/18 05:31: Lipase 67 L 11/06/18 05:31: Total Bilirubin 0.4, Direct Bilirubin 0.1, Indirect Bilirubin 0.3, AST 16, ALT 40, Alkaline Phosphatase 73, Total Protein 7.0, Albumin 3.7 - Imaging US - abdomen: report reviewed, image reviewed Assessment and Plan (1) Chest pain Current visit: Yes Status: Acute Qualifiers: Chest pain type: precordial pain Qualified Code(s): R07.2 - Precordial pain Category: Medical Code(s): R07.9 - Chest pain, unspecified (2) Abdominal pain Current visit: Yes Status: Acute Category: Medical Code(s): R10.9 - Uns pecified abdominal pain (3) Cholelithiasis Current visit: Yes Status: Acute Category: Medical Code(s): K80.20 - Calculus of gallbladder without cholecystitis without obstruction Her gallstones may be asymptomatic. Her symptoms are somewhat complex and are not c/w "classic" biliary disease. Burning pain that projects to the neck is more c/w reflux; however, some of her symptoms may be secondary to her gallstones or she may be experiencing an atypical presentation. Ongoing discussion concerning possible cholecystectomy (will evaluate response to GI cocktail and will complete EGD first) (4) GERD (gastroesophageal reflux disease) Current visit: Yes Status: Acute Category: Medical Code(s): K21.9 - Gastro-esophageal reflux disease without esophagitis GI cocktail EGD in AM
--- NOTE | 2018-11-06 18:05 | Cardiology Report ---
PROCEDURE: 2-D M-mode and color Doppler study INDICATIONS FOR THE TEST: Chest pain+ COPD Heart Murmur Tobacco Smoking+ Palpitations Fatigue Syncope Edema Hypertension+Diabetes Mellitus Rheumatic Fever SOB BARNARD Obesity+Hyperlipidemia+ Family History HD Additional History PATIENT INFORMATION HEIGHT: 62 WEIGHT:220 GENDER: Female B/P:144/90 2-D/M-MODE INTERPRETATION: 2-D MEASUREMENTS OBSERVED VALUES IN CMS Right Ventricular Dimension (RVDd) 2.8 Interventricular Septum (Thickness)(IVsd) 0.9 Left Ventricular Internal Dimensions(LVIDd) 4.9 Left Ventricular Posterior Wall (Thickness)(LVPWd) 1.1 Aortic Root 2.6 Aortic Cusp Separation 1.9 Left Atrial Dimensions (LAD) 3.6 2D 1. Left atrium is normal size, left ventricle is normal size, there is no concentric left ventricular hypertrophy, visually estimated ejection fraction of 55% with no regional wall motion abnormality. 2. The right atrium is normal size, right ventricle is mildly enlarged with normal contractility. 3. The aortic, mitral and tricuspid valve are grossly normal. 4. The pulmonic valve is poorly visualized. 5. No significant pericardial effusion noted. DOPPLER INTERROGATION: Doppler interrogation of the aortic, mitral and tricuspid valvular presence of mild mitral and tricuspid regurgitation, tricuspid regurgitation jet velocity is inadequate for calculation of the right ventricular systolic pressure, grade 1 diastolic dysfunction seen with tissue Doppler evidence of raised left atrial pressure. Inferior vena cava is normal size with normal inspiratory collapse. CONCLUSION: 1. Normal left ventricular size, preserved left ventricular systolic function, visually estimated ejection fraction 55% with no regional wall motion abnormality, grade 1 diastolic dysfunction seen with tissue Doppler evidence of raised left atrial pressure. 2. Mild mitral and tricuspid regurgitation, tricuspid regurgitation jet velocity is inadequate for calculation of the right ventricular systolic pressure, inferior vena cava is normal size with normal inspiratory collapse. 3. No significant pericardial effusion noted.
--- NOTE | 2018-11-07 06:34 | Progress Note ---
Subjective Narrative: Feels "a little bit better this morning". She did have some relief with GI cocktail last night. She did not have "complete resolution". Exam Vital signs and Labs for Last 24 Hours: Temp Pulse Resp BP Pulse Ox 98.1 F 67 18 127/71 95 11/07/18 04:51 11/07/18 04:51 11/07/18 04:51 11/07/18 04:51 11/07/18 04:51 Laboratory Results - last 24 hr 11/06/18 05:31: Troponin I < 0.02 11/06/18 05:31: WBC 9.3, RBC 3.83 L, Hgb 12.3 D, Hct 34.8 L, MCV 90.8, MCH 31.9 H, MCHC 35.1, RDW 12.3, Plt Count 168, MPV 7.7, Neut % (Auto) 36.8 L, Lymph % (Auto) 54.5 H, [place] % (Auto) 5.6, Eos % (Auto) 2.4, Baso % (Auto) 0.6, Neut # (Auto) 3.4, Lymph # (Auto) 5.1 H, [place] # (Auto) 0.5, Eos # (Auto) 0.2, Baso # (Auto) 0.1, Total Counted 100, Neutrophils % (Manual) 30 L, Band Neutrophils % 1.0, Lymphocytes % (Manual) 64 H, Monocytes % (Manual) 3, Eosinophils % (Manual) 2, Platelet Estimate Normal, RBC Morphology Normal 11/06/18 05:31: Sodium 143, Potassium 3.4 L, Chloride 107, Carbon Dioxide 28, Anion Gap 11.4, BUN 11, Creatinine 0.62, Estimated Creat Clear 157, Estimated GFR 103, Est GFR ( Amer) 124 D, Glucose 103, Calcium 9.0, Magnesium 1.9, Triglycerides 175, Cholesterol 144, LDL Cholesterol 83, VLDL Cholesterol 35, HDL Cholesterol 26 L, Cholesterol/HDL Ratio 5.5 H 11/06/18 05:31: Amylase 21 L 11/06/18 05:31: Lipase 67 L 11/06/18 05:31: Total Bilirubin 0.4, Direct Bilirubin 0.1, Indirect Bilirubin 0.3, AST 16, ALT 40, Alkaline Phosphatase 73, Total Protein 7.0, Albumin 3.7 I & O for Last 24 hours: Intake & Output 11/04/18 11/05/18 11/06/18 11/07/18 11:59 11:59 11:59 11:59 Intake Total 467 / 467 1503 / 1503 Output Total 500 / 500 Balance -33 / -33 1503 / 1503 Weight 197 lb 4 oz 199 lb 9 oz - Constitutional no acute distress - *Routine Respiratory Exam Absent: respiratory distress - *Routine Abdominal Exam Present: soft Progress Note: A&P (1) Chest pain Status: Acute Current Visit: Yes (2) Abdominal pain Status: Acute Current Visit: Yes (3) Cholelithiasis Status: Acute Current Visit: Yes (4) GERD (gastroesophageal reflux disease) Status: Acute Current Visit: Yes Assessment and Plan for All Diagnoses:: The patient is scheduled to undergo esophagogastroduodenoscopy this morning. If the patient's esophagogastroduodenoscopy is normal ongoing consideration of cholecystectomy during this hospitalization will be discussed. If the patient's esophagogastroduodenoscopy reveals any abnormalities laparoscopic cholecystectomy will be postponed for ongoing evaluation of treatment of any said abnormality.
[2018-11-07 06:40] LABS: Basophils % 0.5 % (0.1-2.0); Eosinophils # 0.3 K/mm3 (0.0-0.4); Eosinophils % 2.9 % (0.1-12.0); Hematocrit 34.5 % (37.0-47.0); Hemoglobin 12.2 g/dL (12.2-16.2); Lymphocytes # 4.1 K/mm3 (0.7-4.5); Lymphocytes % 48.2 % (10-50); Mean Corpuscular HGB Conc 35.5 g/dL (31.8-35.4); Mean Corpuscular Hemoglobin 32.3 pg (27.0-31.2); Mean Corpuscular Volume 90.8 fl (81-99); Mean Platelet Volume 7.6 fl (7.4-10.4); Monocytes # 0.4 K/mm3 (0.1-1.0); Monocytes % 4.9 % (1.7-9.3); Neutrophils # 3.7 K/mm3 (1.8-7.8); Neutrophils % 43.5 % (37.0-80.0); Platelet Count 152 K/mm3 (142-424); Red Cell Distribution Width 12.3 % (11.5-17.5); White Blood Count 8.6 K/mm3 (4.8-10.8)
[2018-11-07 07:01] LABS: Anion Gap 10.1 mEq/L (5-15); Potassium 3.1 mmoL/L (3.5-5.1)
--- NOTE | 2018-11-07 07:25 | Progress Note ---
[facility] Anesthesia Checklist - Patient Identification Patient Identification: Arm Band, Verbal (Name & ) - Structural Data Admitted From: Home Planned Operative Procedure/s: egd Consent for Planned Operative Procedure(s) Verified: Yes Verified Documents: History and Physical - NPO Status Verified Time NPO: 00:00 - Additional verifications Patient : No Anesthesia Reactions: No Hx Blood Transfusions: No Blood Transfusion Reaction: No Cephalosporin Allergy: No Previous Colonoscopy: No - Cardiovascular Assessment Heart Sounds: S1 & S2 Pulse Strength: Baseline Pulse Rhythm: Regular Peripheral Edema: No - Airway Assessment C-Spine Mobility Assessed: Yes TMJ Mobility Assessed: Yes Dentition: Good Dentition - Neurological Assessment Level of Consciousness: Awake, Alert, Appropriate Hx Seizures: No Numbness or tingling in extremities: No - Anesthesia Plan Anesthesia Risk discussed: Yes Anesthesia Plan: Verified ASA Class: III Anesthesia Type: MAC [facility] History I have reviewed the patient's past medical history: Yes Medical History: Reports:: Chronic Obstructive Pulmonary Disease (COPD), Hyperlipidemia, Hypertension Denies:: Diabetes Mellitus Type 1, Diabetes Mellitus Type 2 *Have you ever received a pneumonia vaccine?: No *Have you received a flu vaccine this season?: No Other Medical History: Reports: Arthritis, Hypothyroidism, Other (Fibromyalgia, Genital Warts) Other Surgeries: Yes: Appendectomy, , Tubal Ligation - *Social History Educational Level: Attended High School Smoking Status: Current every day smoker Tobacco Type: cigarettes # Packs/Day (cigarettes): 1 Alcohol Intake: never *Occupational Status:: disabled Housing: apartment *Travel in the last 8 weeks: None - Psychiatric History Expresses thoughts of harming self/others: None Suicide Plan Description: No Plan Family Hx:: Diabetes, Heart Attack, Hyperlipidemia, Hypertension, Stroke
--- NOTE | 2018-11-07 07:29 | Procedure Note ---
- Procedure: Date: 11/07/18 Procedure Performed:: Esophagogastroduodenoscopy with biopsy Indications:: Upper abdominal pain Gastroesophageal reflux Performing Provider:: Irineo Hart MD Referring Provider:: Dr. Morales Sedation:: MAC Procedure:: After informed consent was obtained the patient was taken to the endoscopy suite. Sedation ensued after the patient was transferred to the left lateral decubitus position. Pulse, blood pressure, and oxygen saturation were monitored throughout the procedure. The endoscope was advanced beyond the duodenal bulb. Retroflexion within the gastric lumen was accomplished. The gastroscope was carefully removed and the patient was transferred to recovery in stable condition. Please see "findings" and "specimens" below for detail. Findings:: Gastroesophageal junction at 39 cm Sliding hiatal hernia Patchy gastritis Mid gastric body polyps Specimens:: Antral biopsy Biopsy of mid gastric body polyps Recommendations:: Follow-up pending pathology Complications:: No immediate Estimated blood obtained (mL): 1
--- NOTE | 2018-11-07 08:19 | Progress Note ---
Internal Medicine - PN: Subj *Date: 11/07/18 *Time: 08:17 Interval history: Patient states she is feeling better this morning. She still has some mild epigastric pain and substernal chest pain but it has improved from yesterday. She was able to rest well last night. She has not had a diet yet today but did have an EGD showing some gastritis. Exam Vital signs and Labs for Last 24 Hours: Temp Pulse Resp BP Pulse Ox 97.8 F 71 16 128/86 93 L 11/07/18 08:00 11/07/18 08:00 11/07/18 08:00 11/07/18 08:00 11/07/18 08:00 Laboratory Results - last 24 hr 11/06/18 05:31: Total Counted 100, Neutrophils % (Manual) 30 L, Band Neutrophils % 1.0, Lymphocytes % (Manual) 64 H, Monocytes % (Manual) 3, Eosinophils % (Manual) 2, Platelet Estimate Normal, RBC Morphology Normal 11/06/18 05:31: Amylase 21 L 11/06/18 05:31: Lipase 67 L 11/06/18 05:31: Total Bilirubin 0.4, Direct Bilirubin 0.1, Indirect Bilirubin 0.3, AST 16, ALT 40, Alkaline Phosphatase 73, Total Protein 7.0, Albumin 3.7 11/07/18 05:38: WBC 8.6, RBC 3.80 L, Hgb 12.2, Hct 34.5 L, MCV 90.8, MCH 32.3 H, MCHC 35.5 H, RDW 12.3, Plt Count 152, MPV 7.6, Neut % (Auto) 43.5, Lymph % (Auto) 48.2, [place] % (Auto) 4.9, Eos % (Auto) 2.9, Baso % (Auto) 0.5, Neut # (Auto) 3.7, Lymph # (Auto) 4.1, [place] # (Auto) 0.4, Eos # (Auto) 0.3, Baso # (Auto) 0.0 11/07/18 05:38: Sodium 144, Potassium 3.1 L, Chloride 108 H, Carbon Dioxide 29, Anion Gap 10.1, BUN 8 D, Creatinine 0.60, Estimated Creat Clear 164, Estimated GFR 107, Est GFR ( Amer) 129, Glucose 91, Calcium 9.0 I & O for Last 24 hours: Intake & Output 11/04/18 11/05/18 11/06/18 11/07/18 11:59 11:59 11:59 11:59 Intake Total 467 / 467 1503 / 1503 Output Total 500 / 500 Balance -33 / -33 1503 / 1503 Weight 197 lb 4 oz 199 lb 9 oz - Constitutional no acute distress - *Routine Cardiovascular Exam Present: RRR - *Routine Abdominal Exam Present: soft, normoactive bowel sounds, tenderness (epigastric) - *Routine Extremities Exam Absent: cyanosis, clubbing, edema Assessment and Plan (1) Chest pain Current visit: Yes Status: Acute Qualifiers: Chest pain type: precordial pain Qualified Code(s): R07.2 - Precordial pain Category: Medical Code(s): R07.9 - Chest pain, unspecified (2) Abdominal pain Current visit: Yes Status: Acute Category: Medical Code(s): R10.9 - Unspecified abdominal pain (3) Cholelithiasis Current visit: Yes Status: Acute Category: Medical Code(s): K80.20 - Calculus of gallbladder without cholecystitis without obstruction (4) GERD (gastroesophageal reflux disease) Current visit: Yes Status: Acute Category: Medical Code(s): K21.9 - Gastro-esophageal reflux disease without esophagitis (5) Gastritis Current visit: Yes Status: Acute Category: Medical Code(s): K29.70 - Gastritis, unspecified, without bleeding - Assessment and plan all Dx Assessment and Plan for all problems:: Patient may be able to be discharged today on a PPI. Will discuss further care with Dr. Morales.
--- NOTE | 2018-11-07 09:42 | Progress Note ---
Subjective Date: 11/07/18 Time: 09:39 Principal diagnosis: chest pain, abdominal pain Interval history: 47-year-old white female in bed in no acute distress. Still relates some chest and abdominal soreness but overall states her symptoms have improved. Stress test showed no evidence of ischemia with normal ejection fraction and wall motion. Patient is undergoing evaluation for possible cholecystectomy. EGD this morning results noted. Exam Vital signs and Labs for Last 24 Hours: Temp Pulse Resp BP Pulse Ox 98.4 F 62 16 132/93 H 94 L 11/07/18 08:45 11/07/18 08:45 11/07/18 08:45 11/07/18 08:45 11/07/18 08:45 Laboratory Results - last 24 hr 11/06/18 05:31: Amylase 21 L 11/06/18 05:31: Lipase 67 L 11/06/18 05:31: Total Bilirubin 0.4, Direct Bilirubin 0.1, Indirect Bilirubin 0.3, AST 16, ALT 40, Alkaline Phosphatase 73, Total Protein 7.0, Albumin 3.7 11/07/18 05:38: WBC 8.6, RBC 3.80 L, Hgb 12.2, Hct 34.5 L, MCV 90.8, MCH 32.3 H, MCHC 35.5 H, RDW 12.3, Plt Count 152, MPV 7.6, Neut % (Auto) 43.5, Lymph % (Auto) 48.2, [place] % (Auto) 4.9, Eos % (Auto) 2.9, Baso % (Auto) 0.5, Neut # (Auto) 3.7, Lymph # (Auto) 4.1, [place] # (Auto) 0.4, Eos # (Auto) 0.3, Baso # (Auto) 0.0 11/07/18 05:38: Sodium 144, Potassium 3.1 L, Chloride 108 H, Carbon Dioxide 29, Anion Gap 10.1, BUN 8 D, Creatinine 0.60, Estimated Creat Clear 164, Estimated GFR 107, Est GFR ( Amer) 129, Glucose 91, Calcium 9.0 I & O for Last 24 hours: Intake & Output 11/04/18 11/05/18 11/06/18 11/07/18 11:59 11:59 11:59 11:59 Intake Total 467 / 467 1503 / 1503 Output Total 500 / 500 Balance -33 / -33 1503 / 1503 Weight 197 lb 4 oz 199 lb 9 oz - *Routine HEENT Exam Head: Present: normocephalic Eye: Present: EOMI, PERRL ENT: Present: mucous membranes moist - *Routine Cardiovascular Exam Present: RRR. Absent: murmur, gallop, rubs - *Routine Abdominal Exam Present: soft. Absent: tenderness, distended, guarding - *Routine Neurological Exam Present: alert, oriented X3, moving all extremities Progress Note: A&P (1) Chest pain Status: Acute Current Visit: Yes (2) Abdominal pain Status: Acute Current Visit: Yes (3) Cholelithiasis Status: Acute Current Visit: Yes (4) GERD (gastroesophageal reflux disease) Status: Acute Current Visit: Yes (5) Gastritis Status: Acute Current Visit: Yes Assessment and Plan for All Diagnoses:: 1. Chest pain, felt to be noncardiac in origin with normal stress test. 2. Patient is clear from a cardiac standpoint for surgery if needed. 3. Follow-up in our office as needed as outpatient.
[2018-11-07 15:43] VITALS: BP 137/74
--- NOTE | 2018-11-10 13:28 | Discharge Summary ---
General - General Admission date:: 11/05/18 Discharge date: 11/07/18 HPI HPI: Ms. Eli is a 47[facility] through [facility] emergency room last night with chest pain. She has had chest pain off and on for the past several days. It was nonexertional when it started last night. She thought it was just reflux as she had some pain in the epigastric area as well, but when it did not resolve, she came to the ER. She has a family history of heart disease. She has hypertension and hyperlipidemia. She is a smoker. She has been seen by cardiology already. She completed a Cardiolite stress test this morning. The results are pending and she is in no acute distress right now but does admit to some substernal chest pain and epigastric pain. Hospital Course Hospital Course: The patient's chest x-ray showed cardiomegaly but was otherwise negative. Her stress test showed no evidence of ischemia. Her computer derived ejection fraction was 44%. Cardiology felt there was no cardiac cause for chest pain and she could be discharged when stable. She did have an echo which showed an EF of 55% with grade 1 diastolic dysfunction. A gallbladder ultrasound was ordered d ue to some right upper quadrant pain. It showed cholelithiasis. Surgery was consulted and Dr. Hart saw the patient. He felt her symptoms were complex and not consistent with biliary disease. He felt she had symptoms more consistent with reflux and therefore he wanted to do an EGD. He gave her a GI cocktail and she had some relief. He performed an EGD which showed a sliding hiatal hernia and patchy gastritis. There were also some mid gastric body polyps. Her amylase and lipase were checked and were normal. Dr. Morales felt she would need a cholecystectomy at some point. Her symptoms did improve and she was stable to be discharged home and will need to follow-up with Dr. Hart on an outpatient basis for possible cholecystectomy. Objective Vital signs: Temp Pulse Resp BP Pulse Ox 98.4 F 86 15 137/74 94 L 11/07/18 15:42 11/07/18 15:42 11/07/18 15:42 11/07/18 15:42 11/07/18 15:42 Narrative: - Constitutional no acute distress - *Routine HEENT Exam Head: Present: normocephalic Eye: Present: EOMI, PERRL ENT: Present: mucous membranes dry - *Routine Neck Exam Present: supple. Absent: lymphadenopathy - *Routine Respiratory Exam Present: CTA bilaterally - *Routine Cardiovascular Exam Present: RRR - *Routine Abdominal Exam Present: soft, normoactive bowel sounds, tenderness (epigastric and RUQ) - *Routine Extremities Exam Absent: cyanosis, clubbing, edema - *Routine Skin Exam Present: warm. Absent: rash - *Routine Neurological Exam Present: alert, oriented X3 DS: Diagnosis - Discharge Diagnosis (1) Chest pain Status: Acute (2) Abdominal pain Status: Acute (3) Cholelithiasis Status: Acute (4) GERD (gastroesophageal reflux disease) Status: Acute (5) Gastritis Status: Acute Discharge Plan - Patient Discharge Instructions ACTIVITY: Continue current activity DIET: continue same diet Patient Instructions: Upper GI Endoscopy, DI for Gastroesophageal Reflux Disease (GERD), DI for Chest Pain - Follow up Plan Follow up with: Irineo Hart MD [Staff Physician] - 11/10/18 Disposition: Home, Self-Alf Medications: Home Medications Medication Instructions Recorded Confirmed Type Acyclovir [Acyclovir 800mg tab] 400 mg PO BID 11/05/18 11/10/18 History Albuterol Sulfate [Albuterol 2.5 mg IH NEEDED PRN 11/05/18 11/10/18 History 0.083% 2.5mg/3mL neb] Fluoxetine HCl [Prozac] 20 mg PO DAILY 11/05/18 11/10/18 History Gabapentin 600 mg PO QID 11/05/18 11/10/18 History Levothyroxine Sodium [Synthroid 37.5 mcg PO DAILY 11/05/18 11/10/18 History 75mcg (0.075mg) tablet] Omeprazole [Omeprazole 20mg Tab] 20 mg PO DAILY 11/05/18 11/10/18 History Ondansetron HCl [Ondansetron 4mg 4 mg PO Q6HP PRN 11/05/18 11/10/18 History Tablet] clonazePAM [Klonopin 0.5mg tablet] 0.5 mg PO TID PRN 11/05/18 11/10/18 History Albuterol Sulfate [Proair Hfa 1 - 2 puffs INHALATION Q6HP PRN 11/06/18 11/10/18 History 90mcg/puff Inh] Lisinopril [Lisinopril 40mg Tablet] 40 mg PO DAILY 11/06/18 11/10/18 History Metoprolol Succinate [Toprol XL 50 mg PO DAILY 11/06/18 11/10/18 History 50mg Tablet] Pravastatin Sodium [Pravachol 40mg 40 mg PO HS 11/06/18 11/10/18 History Tablet] Hyoscyamine Sulfate 0.125 mg PO QID PRN #60 drops 11/07/18 11/10/18 Rx Nicotine [Nicoderm 21mg/24hr 21 mg TD DAILYP PRN #30 patch.td24 11/07/18 11/10/18 Rx patch] Potassium Chloride [Pot Chlor 10 10 meq PO DAILY #30 tab 11/07/18 11/10/18 Rx mEq Tab] Prescriptions/Medication Reconciliation: New Nicotine [Nicoderm 21mg/24hr patch] 21 mg TD DAILYP PRN #30 patch.td24 PRN Reason: Nicotine Cravings Hyoscyamine Sulfate 0.125 mg PO QID PRN #60 drops PRN Reason: Cramping Potassium Chloride [Pot Chlor 10 mEq Tab] 10 meq PO DAILY #30 tab Continued Ondansetron HCl [Ondansetron 4mg Tablet] 4 mg PO Q6HP PRN PRN Reason: Nausea/VOMITING Levothyroxine Sodium [Synthroid 75mcg (0.075mg) tablet] 37.5 mcg PO DAILY Gabapentin 600 mg PO QID Fluoxetine HCl [Prozac] 20 mg PO DAILY clonazePAM [Klonopin 0.5mg tablet] 0.5 mg PO TID PRN PRN Reason: Anxiety Albuterol Sulfate [Albuterol 0.083% 2.5mg/3mL neb] 2.5 mg IH NEEDED PRN PRN Reason: Shortness Of Breath Acyclovir [Acyclovir 800mg tab] 400 mg PO BID Albuterol Sulfate [Proair Hfa 90mcg/puff Inh] 1 - 2 puffs INHALATION Q6HP PRN PRN Reason: COUGH/WHEEZING Lisinopril [Lisinopril 40mg Tablet] 40 mg PO DAILY Metoprolol Succinate [Toprol XL 50mg Tablet] 50 mg PO DAILY Pravastatin Sodium [Pravachol 40mg Tablet] 40 mg PO HS Omeprazole [Omeprazole 20mg Tab] 20 mg PO DAILY Discontinued Naproxen [Naproxen 500mg tab] 500 mg PO BID
== END 2018-11-07 16:16 | disposition home or self-care (01) ==
LOC: ER 20:36 → 2ND 20:36
PROVIDERS: ADMIT Family Medicine; ATTEND Family Medicine
DX: K29.60 Other gastritis without bleeding; I10 Essential (primary) hypertension; E78.5 Hyperlipidemia, unspecified; R07.9 Chest pain, unspecified; Z79.899 Other long term (current) drug therapy; E03.9 Hypothyroidism, unspecified; J44.9 Chronic obstructive pulmonary disease, unspecified; K21.9 Gastro-esophageal reflux disease without esophagitis; Z82.49 Family history of ischemic heart disease and other diseases of the circulatory system; K31.7 Polyp of stomach and duodenum; R07.2 Precordial pain; Z68.34 Body mass index [BMI] 34.0-34.9, adult; E66.9 Obesity, unspecified; Z72.0 Tobacco use; E87.6 Hypokalemia; M19.90 Unspecified osteoarthritis, unspecified site; K80.20 Calculus of gallbladder without cholecystitis without obstruction; K44.9 Diaphragmatic hernia without obstruction or gangrene; M79.7 Fibromyalgia; R10.30 Lower abdominal pain, unspecified
CPT/HCPCS: 36415; 71020; 71046; 76705; 78452; 80048; 80061; 80076; 82150; 83690; 83735; 84436; 84443; 84484; 85007; 85025; 88305; 93005; 93017; 93306; 96365; 99284; A9502; G0378

== ENCOUNTER → 2018-11-25 14:40 | Outpatient (CLI) | payer OTHER, SELFPAY ==
[2018-11-25 14:56] LABS: Basophils # 0.1 K/mm3 (0-0.2); Basophils % 0.6 % (0.1-2.0); Eosinophils # 0.3 K/mm3 (0.0-0.4); Eosinophils % 2.6 % (0.1-12.0); Hematocrit 38.9 % (37.0-47.0); Hemoglobin 13.6 g/dL (12.2-16.2); Lymphocytes # 4.3 K/mm3 (0.7-4.5); Lymphocytes % 37.2 % (10-50); Mean Corpuscular HGB Conc 34.9 g/dL (31.8-35.4); Mean Corpuscular Hemoglobin 32.1 pg (27.0-31.2); Mean Corpuscular Volume 91.9 fl (81-99); Mean Platelet Volume 7.8 fl (7.4-10.4); Monocytes # 0.6 K/mm3 (0.1-1.0); Monocytes % 5.5 % (1.7-9.3); Neutrophils # 6.3 K/mm3 (1.8-7.8); Neutrophils % 54.1 % (37.0-80.0); Platelet Count 229 K/mm3 (142-424); Red Blood Count 4.23 M/mm3 (4.20-5.40); Red Cell Distribution Width 12.4 % (11.5-17.5); White Blood Count 11.7 K/mm3 (4.8-10.8)
[2018-11-25 17:33] LABS: Alanine Aminotransferase 36 U/L (12-78); Alkaline Phosphatase 77 U/L (46-116); Anion Gap 12.7 mEq/L (5-15); Aspartate Amino Transferase 9 U/L (15-37); Bilirubin,Total 0.6 mg/dL (0.2-1.0); Blood Urea Nitrogen 11 mg/dL (7-18); Carbon Dioxide 31 mmol/L (21.0-32.0); Chloride 102 mmol/L (98-107); Creatinine,Serum 0.69 mg/dL (0.55-1.02); Estimated Glomerular Filt Rate 90 ml/min (>60); GFR (African American) 109 ML/MIN (>60); Glucose 65 mg/dL (74-106); Potassium 3.7 mmoL/L (3.5-5.1); Sodium 142 mmol/L (136-145)
== END ==
PROVIDERS: Visit Provider Surgery
DX: K80.20 Calculus of gallbladder without cholecystitis without obstruction (principal)
CPT/HCPCS: 36415; 80053; 85025

== ENCOUNTER 2018-11-28 10:44 | Day surgery (SDC) | payer OTHER, SELFPAY ==
[2018-11-26 15:23] VITALS: BMI 34.0
[2018-11-28] VITALS (14 sets, daily range): BP systolic 109–149; BP diastolic 64–86; PULSE 56–87; RESP 12–26; TEMP 36.2–43; O2SAT 91–98
[2018-11-28 14:02] LABS: Urine Pregnancy, HCG Qual. Negative (Negative)
--- NOTE | 2018-11-28 15:05 | HMH.OPNOTE ---
Date of procedure: 11/28/18 Pre-op Diagnosis:: Symptomatic cholelithiasis Post-op Diagnosis:: Chronic calculus cholecystitis Procedure performed:: Laparoscopic cholecystectomy Surgeon:: Irineo Hart MD CHEMICAL PROCESSING LABORER:: Davonte Nolan Anesthesia: GETA Estimated blood loss (mL): 10 Operative findings:: Multiple small stones within gallbladder Significant pericholecystic fat stranding with omentum, small bowel, and stomach adhered to gallbladder Operative note:: After informed consent was obtained, the patient was taken to the operating room and placed in the supine position. General anesthesia was induced and the abdomen was prepped and draped in a sterile fashion. After infiltration with local anesthetic an infraumbilical incision was made. A Veress needle was placed in position. The abdomen was insufflated. A 5 mm optical trocar was placed in position. Under direct visualization, a 12 mm trocar was placed in the subxiphoid position and 2 additional 5 mm trocars were placed in the right upper quadrant. The gallbladder was elevated up and over the liver margin. Significant pericholecystic fat stranding noted. Omentum, small bowel, and stomach adhered to gallbladder densely. A combination of blunt dissection and harmonic leigh utilized to take down the adhered tissue. Careful attention was utilized to avoid injury to small bowel/stomach. No obvious sign of blunt, sharp, or thermal injury to small bowel or stomach noted. The tissue around the cystic duct was carefully dissected. 3 clips were placed proximally and the duct was transected with harmonic leigh. Harmonic leigh were then utilized to dissect the gallbladder away from the liver margin with careful attention to the control of the cystic artery. The gallbladder was placed in a retrieval bag and removed through the subxiphoid trocar site. The right upper quadrant was thoroughly irrigated. No active bleeding or bile leak was noted. Fascia at the subxiphoid trocar site was reapproximated utilizing 0 Ethibond. The remaining trocars were removed. All wounds were irrigated and skin was closed with 4-0 Monocryl in a subcuticular fashion. Steri-Strips were applied. The patient's anesthetic agents were reversed and extubation was completed prior to transfer to recovery in stable condition. Condition: stable Disposition: PACU Specimens:: Gallbladder and contents Complications:: No immediate
--- NOTE | 2018-11-28 15:24 | HMH.ANESCL ---
[facility] Anesthesia Checklist - Patient Identification Patient Identification: Arm Band, Verbal (Name & ) - Structural Data Admitted From: Home Planned Operative Procedure/s: Laparoscopic cholecystectomy Consent for Planned Operative Procedure(s) Verified: Yes Verified Documents: Surgical Consent, History and Physical - NPO Status Verified Time NPO: 00:00 - Chart Verification Results Verified: HCG - Additional verifications Patient : No Anesthesia Reactions: No - Airway Assessment C-Spine Mobility Assessed: Yes TMJ Mobility Assessed: Yes Dentition: Edentulous - Neurological Assessment Level of Consciousness: Awake Hx Seizures: No Numbness or tingling in extremities: No - Anesthesia Plan Anesthesia Risk discussed: Yes Anesthesia Plan: Verified ASA Class: III Anesthesia Type: General [facility] History I have reviewed the patient's past medical history: Yes Medical History: Reports:: Chronic Obstructive Pulmonary Disease (COPD), Hyperlipidemia, Hypertension Denies:: Cancer, Diabetes Mellitus Type 1, Diabetes Mellitus Type 2, Internal Pacemaker, MRSA, Seizures *Have you ever received a pneumonia vaccine?: No *Have you received a flu vaccine this season?: No Other Medical History: Reports: Arthritis, Hypothyroidism, Other. Denies: Blood Transfusion Reaction Comment:: Obesity Other Surgeries: Yes: Appendectomy, , EGD, Tubal Ligation. No: Pacemaker Amputation: No Fractures: No - *Social History Educational Level: Attended High School Smoking Status: Current every day smoker Tobacco Type: cigarettes, e-cigarettes # Packs/Day (cigarettes): 1 Alcohol Intake: never *Occupational Status:: disabled Housing: apartment *Travel in the last 8 weeks: None - Psychiatric History Expresses thoughts of harming self/others: None Suicide Plan Description: No Plan Family Hx:: Diabetes, Heart Attack, Hyperlipidemia, Hypertension, Stroke
--- NOTE | 2018-11-28 15:25 | HMH.ANESI ---
[facility] Anesthesia Record Part I Intake, IV Amount: 700 Estimated blood loss (mL): 15 Urine output (mL): 0 (NM) Blood Products used (#): none Blood Pressure: 121/70 SaO2: 95 Pulse Rate: 73 Respiratory Rate: 12 Temperature: 97.8 F Patient is:: Awake, Drowsy, Mask O2, Oral/Nasal airway, Stable Stable to PACU at:: 15:13
--- NOTE | 2018-11-28 15:27 | HMH.ANESII ---
[facility] Anesthesia Record Part II Discharge Time: 15:43 Destination: Surgical Day Care (OP Surgery) PACU nurse assessment reviewed?: Yes Patient Condition:: Good Anesthesia Complications:: None Swallowing reflex intact?: Yes Cyanosis?: No
--- NOTE | 2018-11-28 18:42 | SUR.PHASEI ---
Pt sedate on arrival to PACU, initially put on NC, noted pt not effectively breathing, oral airway inserted by POSTPARTUM NURSE, simple mask applied at 10L, pt continued to have ineffective breathing, simple mask changed out for non-rebreather with oral airway in place, as pt slowly woke O2 saturation increased, oral airway removed, non-rebreather remained in use, pt received breathing treatment of duo nebs, simple mask placed after breathing treatment, pt asked for ice chips, simple masked replaced with NC at 6L and then titrated down to 2L O2
== END 2018-11-28 17:00 | disposition home or self-care (01) ==
LOC: OR 10:44
PROVIDERS: PCP Nurse Practitioner Family; Visit Provider Surgery
PROC: 0FT44ZZ Resection of Gallbladder, Percutaneous Endoscopic Approach (ICD-10-PCS; CPT 47562; principal; 2018-11-28 11:15)
DX: K80.10 Calculus of gallbladder with chronic cholecystitis without obstruction
CPT/HCPCS: 47562; 81025; 94640; 96374; J2405; J2710